=== PATIENT | female | born 1945 | race Caucasian/White ===

== ENCOUNTER 2020-03-04 13:22 | Emergency (ER) | payer MEDICARE, OTHER, SELFPAY ==
--- NOTE | 2020-03-04 13:24 | ED.FEMALEGU ---
HPI - Female Genitourinary General Chief complaint: Urogenital-Female Stated complaint: pos uti Time Seen by Provider: 03/04/20 14:00 Source: patient and RN notes reviewed Mode of arrival: ambulatory Limitations: no limitations History of Present Illness HPI Narrative: 74-year-old female presents concern for 1 day history of dysuria, urgency, frequency. Reports chills last night. She denies fever, malaise, hematuria, nausea, vomiting, flank pain. Reports chronic low back pain. MD elicited complaint: UTI Related Data Home Medications Medication Instructions Recorded Confirmed atorvastatin 40 mg tablet 40 mg PO DAILY 10/05/19 03/04/20 carvedilol 6.25 mg tablet 6.25 mg PO Q12H 10/05/19 03/04/20 celecoxib 200 mg capsule 200 mg PO DAILY 10/05/19 03/04/20 cholecalciferol (vit D3) 1,000 1 tablet PO DAILY 10/05/19 03/04/20 unit-vitamin K2 (MK4) 100 mcg tablet digestive enzymes 1 tablet PO DAILY 10/05/19 03/04/20 docusate sodium 250 mg capsule 250 mg PO DAILY 10/05/19 03/04/20 esomeprazole magnesium 20 mg 20 mg PO BID cap 10/05/19 03/04/20 capsule,delayed release famotidine 20 mg tablet 20 mg PO DAILY 10/05/19 03/04/20 ferrous sulfate 325 mg (65 mg 325 mg PO DAILY 10/05/19 03/04/20 iron) tablet fluticasone propionate 50 1 spray NASAL DAILY 10/05/19 03/04/20 mcg/actuation nasal spray,suspension gabapentin 800 mg tablet 800 mg PO DAILY 10/05/19 03/04/20 [id number] 1 cap PO BID 10/05/19 03/04/20 24,000-76,000-120,000 unit capsule,delayed rel lisinopril 10 mg tablet 10 mg PO DAILY 10/05/19 03/04/20 magnesium oxide 400 mg (241.3 mg 400 mg PO DAILY 10/05/19 03/04/20 magnesium) tablet meclizine 25 mg tablet 25 mg PO BID 10/05/19 03/04/20 vitamin B complex 1 tablet PO DAILY 10/05/19 03/04/20 zolpidem 10 mg tablet 5 mg PO HS 10/05/19 03/04/20 hydrocodone 10 mg-acetaminophen 1 tablet PO Q8H PRN 10/26/19 03/04/20 325 mg tablet Allergies Allergy/AdvReac Type Severity Reaction Status Date / Time VOLTAREN TOPICAL AdvReac Mild HIVES Uncoded 12/22/19 10:14 Review of Systems Review of Systems: Narrative: CONSTITUTIONAL: Denies malaise, chills, sweats, or fever. CARDIOVASCULAR: Denies chest pain, palpitations, or edema. RESPIRATORY: Denies cough or dyspnea. GASTROINTESTINAL: Denies abdominal pain, nausea, vomiting, diarrhea GENITOURINARY: Reports urgency, frequency, dysuria. Denies flank pain or hematuria. MUSCULOSKELETAL: Reports low back pain. Denies myalgia. All systems reviewed & are unremarkable except as noted in HPI and below PMFSH Past Medical History Medical History (Updated 03/04/20 @ 14:21 by Hollie Ruiz NP) Anemia Arthritis Cellulitis of left foot Chronic GERD Diabetes Dizziness HTN (hypertension) Left foot pain Metatarsal fracture Seasonal allergies Sleep disorder Vertigo Vision abnormalities Surgical History Surgical History History of appendectomy History of bilateral knee replacement History of right hip replacement History of spinal fusion Family History Family History Unknown Diabetes mellitus Hypertension Cardiovascular disease Arthritis Social History Social History Alcohol intake: never Additional living arrangements comments: 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 There is no relevant family history pertinent to the presenting complaint Exam Narrative: Exam Narrative: GENERAL: Well-appearing, well-nourished, and in no acute distress. HEAD: Normocephalic. EYES: PERRLA, conjunctivae clear. NECK: Supple. No lymphadenopathy CHEST: Clear to auscultation. No respiratory d
[2020-03-04 13:38] VITALS: BP 146/74; PULSE 72; RESP 18; TEMP 36.4; O2SAT 97
== END 2020-03-04 14:23 | disposition home or self-care (01) ==
PROVIDERS: Emergency Provider Nurse Practitioner
DX: N39.0 Urinary tract infection, site not specified (principal); M19.90 Unspecified osteoarthritis, unspecified site; K21.9 Gastro-esophageal reflux disease without esophagitis; E11.9 Type 2 diabetes mellitus without complications; I10 Essential (primary) hypertension; Z96.653 Presence of artificial knee joint, bilateral; Z96.641 Presence of right artificial hip joint
CPT/HCPCS: 81003; 87077; 87086; 87088; 87186; 99213; G0463

== ENCOUNTER 2020-09-30 16:13 | Emergency (ER) | payer MEDICARE, OTHER, SELFPAY ==
--- NOTE | 2020-09-30 16:20 | ED.GENADULT ---
HPI - General Adult General Chief complaint: Urogenital-Female Stated complaint: UTI Source: patient Mode of arrival: ambulatory Limitations: no limitations History of Present Illness HPI narrative: 74 y/o female. PMHx GERD, Iron Def Anemia, HTN, Neuropathy, OA. Presents to [facility] today with acute complaints of urinary frequency, bladder pressure, and dysuria for the past 48 hours. No fever, chills. No abdominal pain, flank pain, pelvic pain, vaginal discharge, or hematuria. Pt has not yet sought out medical evaluation until now, today. No additional acute complaints of illness have been relayed upon exam. Related Data Home Medications Medication Instructions Recorded Confirmed atorvastatin 40 mg tablet 40 mg PO DAILY 10/05/19 03/04/20 carvedilol 6.25 mg tablet 6.25 mg PO Q12H 10/05/19 03/04/20 celecoxib 200 mg capsule 200 mg PO DAILY 10/05/19 03/04/20 cholecalciferol (vit D3) 1,000 1 tablet PO DAILY 10/05/19 03/04/20 unit-vitamin K2 (MK4) 100 mcg tablet digestive enzymes 1 tablet PO DAILY 10/05/19 03/04/20 docusate sodium 250 mg capsule 250 mg PO DAILY 10/05/19 03/04/20 esomeprazole magnesium 20 mg 20 mg PO BID cap 10/05/19 03/04/20 capsule,delayed release famotidine 20 mg tablet 20 mg PO DAILY 10/05/19 03/04/20 ferrous sulfate 325 mg (65 mg 325 mg PO DAILY 10/05/19 03/04/20 iron) tablet fluticasone propionate 50 1 spray NASAL DAILY 10/05/19 03/04/20 mcg/actuation nasal spray,suspension gabapentin 800 mg tablet 800 mg PO DAILY 10/05/19 03/04/20 tzjhxw-dhpcbvbo-pjavrsl 1 cap PO BID 10/05/19 03/04/20 24,000-76,000-120,000 unit capsule,delayed rel lisinopril 10 mg tablet 10 mg PO DAILY 10/05/19 03/04/20 magnesium oxide 400 mg (241.3 mg 400 mg PO DAILY 10/05/19 03/04/20 magnesium) tablet meclizine 25 mg tablet 25 mg PO BID 10/05/19 03/04/20 vitamin B complex 1 tablet PO DAILY 10/05/19 03/04/20 zolpidem 10 mg tablet 5 mg PO HS 10/05/19 03/04/20 oxycodone-acetaminophen 09/30/20 Allergies Allergy/AdvReac Type Severity Reaction Status Date / Time VOLTAREN TOPICAL AdvReac Mild HIVES Uncoded 09/30/20 16:25 Review of Systems Review of Systems: CONSTITUTIONAL: Denies fever, chills, sweats. EYES: Denies visual changes, redness, discharge. ENT: Denies rhinorrhea, congestion, sore throat, otalgia. CARDIOVASCULAR: Denies chest pain, palpitations, edema. RESPIRATORY: Denies dyspnea, wheezing, cough GASTROINTESTINAL: Denies abdominal pain, nausea, vomiting, diarrhea. GENITOURINARY: Positive dysuria. No hematuria, abnormal discharge SKIN: Denies rash or itching. MUSCULOSKELETAL: Denies acute back pain, joint pain, or myalgia. NEUROLOGIC: Denies numbness, or focal weakness. PSYCHIATRIC: Denies anxiety or depression. All systems reviewed & are unremarkable except as noted in HPI and below PMFSH Past Medical History Medical History (Updated 09/30/20 @ 16:29 by TIMMY Faustin) Anemia Arthritis Cellulitis of left foot Chronic GERD Diabetes Dizziness HTN (hypertension) Left foot pain Metatarsal fracture Seasonal allergies Sleep disorder Vertigo Vision abnormalities Surgical History Surgical History History of appendectomy History of bilateral knee replacement History of right hip replacement History of spinal fusion Family History Family History Unknown Diabetes mellitus Hypertension Cardiovascular disease Arthritis Social History Social History Smoking status: Never smoker Alcohol intake: never Additional living arrangements comments: 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
[2020-09-30 16:24] VITALS: BP 139/68; PULSE 64; RESP 20; TEMP 36.8; O2SAT 96
== END 2020-09-30 16:54 | disposition home or self-care (01) ==
PROVIDERS: Emergency Provider Nurse Practitioner Adult Health; PCP Family Medicine
DX: N39.0 Urinary tract infection, site not specified (principal); M19.90 Unspecified osteoarthritis, unspecified site; K21.9 Gastro-esophageal reflux disease without esophagitis; I10 Essential (primary) hypertension; G47.9 Sleep disorder, unspecified; Z96.653 Presence of artificial knee joint, bilateral; Z96.641 Presence of right artificial hip joint; D50.9 Iron deficiency anemia, unspecified
CPT/HCPCS: 81003; 87077; 87086; 87186; 99213; G0463

== ENCOUNTER 2020-10-26 13:10 | Emergency (ER) | payer MEDICARE, OTHER, SELFPAY ==
[2020-10-26] VITALS (15 sets, daily range): BP systolic 129–151; BP diastolic 63–94; PULSE 61–99; RESP 14–28; TEMP 36.8–36.9; O2SAT 91–95
--- NOTE | 2020-10-26 14:36 | ED.BACK ---
HPI - Back Pain/Injury General Chief Complaint: Back Pain/Injury Stated Complaint: left back pain Time Seen by Provider: 10/26/20 14:35 History of Present Illness HPI Narrative: 74 yo female w/ h/o pancreatitis, frequent UTi presents to the ED c/o back pain. She reports pain in the left upper back near the scapula since this morning. Pain was initially severe, now mild. She denies any associated symptoms. She says that this is similar to previous pancreatitis. Related Data Home Medications Medication Instructions Recorded Confirmed atorvastatin 40 mg tablet 40 mg PO DAILY 10/05/19 10/05/20 carvedilol 6.25 mg tablet 6.25 mg PO Q12H 10/05/19 10/05/20 celecoxib 200 mg capsule 200 mg PO DAILY 10/05/19 10/05/20 cholecalciferol (vit D3) 1,000 1 tablet PO DAILY 10/05/19 10/05/20 unit-vitamin K2 (MK4) 100 mcg tablet ferrous sulfate 325 mg (65 mg 325 mg PO DAILY 10/05/19 10/05/20 iron) tablet fluticasone propionate 50 1 spray NASAL BID 10/05/19 10/05/20 mcg/actuation nasal spray,suspension gabapentin 800 mg tablet 800 mg PO QID 10/05/19 10/05/20 lisinopril 10 mg tablet 10 mg PO DAILY 10/05/19 10/05/20 meclizine 25 mg tablet 25 mg PO QID PRN 10/05/19 10/05/20 vitamin B complex 1 tablet PO DAILY 10/05/19 10/05/20 chlorzoxazone 500 mg PO TID 09/30/20 10/05/20 furosemide 20 mg PO DAILY PRN 09/30/20 10/05/20 oxybutynin chloride 10 mg PO DAILY 09/30/20 10/05/20 Allergies Allergy/AdvReac Type Severity Reaction Status Date / Time VOLTAREN TOPICAL AdvReac Mild HIVES Uncoded 10/26/20 13:26 Review of Systems Review of Systems: All systems reviewed & are unremarkable except as noted in HPI and below Constitutional: Constitutional: Denies fever(s) Cardiovascular: Cardiovascular: Denies chest pain Respiratory: Respiratory: Denies dyspnea Gastrointestinal: Gastrointestinal: Denies abdominal pain, Denies nausea and Denies vomiting Genitourinary: Genitourinary: Denies hematuria and Denies dysuria Neurologic: Denies numbness and Denies weakness COUNTS INCLUDE 234 BEDS AT THE [facility] Past Medical History Medical History Anemia Arthritis Cellulitis of left foot Chronic GERD Dizziness HTN (hypertension) Left foot pain Metatarsal fracture Seasonal allergies Sleep disorder Vertigo Vision abnormalities Surgical History Surgical History History of appendectomy History of bilateral knee replacement History of right hip replacement History of spinal fusion Family History Family History Unknown Diabetes mellitus Hypertension Cardiovascular disease Arthritis Social History Social History Alcohol intake: never Additional living arrangements comments: 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 Exam Const: General: no acute distress and alert Orientation/consciousness: patient oriented x3 HENMT: Head: normal to inspection Neck: Neck: normal visual inspection Chest: Chest palpation & inspection: no tenderness Resp: Effort & Inspection: normal respiratory effort Auscultation: clear to auscultation bilaterally, no rales, no rhonchi and no wheezes Cardio: Jugular venous distension: no JVD Rate: regular rate Rhythm: regular rhythm Heart sounds: no murmurs GI: Inspection: non-distended GI Palp: Yes Soft to palpation and No Tenderness to palpation present (GI) Back/Spine/Pelvis: Other: nontender Skin: General skin exam: normal color Neuro: General: patient oriented x3 and moves all extremities Speech: normal speech Extrem: General: no edema Psych: Appearance: well kempt Affect: normal affect Course Vital Signs Vital signs: Vital Signs Temperature 36.8 C 10/26/20 13:16 Pulse Rate 69
[2020-10-26 15:54] LABS: Basophils Percent Auto 0.3 % (0.2-1.2); Eosinophils Percent Auto 0.6 % (0-4.4); Hematocrit 44.8 % (37.0-47.0); Hemoglobin 15.3 g/dL (12.0-15.0); Immature Granulocyte Absolute 0.01 K/mm3 (0.00-0.031); Immature Granulocyte Percent A 0.2 % (0-0.5); Lymphocytes Absolute Auto 2.05 K/mm3 (0.9-3.2); Lymphocytes Percent Auto 31.3 % (18.3-44.2); Mean Corpuscular HGB Conc 34.2 g/dl (32-36); Mean Corpuscular Hemoglobin 30.2 pg (26-34); Mean Corpuscular Volume 88.4 fl (80-100); Mean Platelet Volume 8.7 fl (7.4-10.4); Monocytes Absolute Auto 0.5 K/mm3 (0.1-0.6); Neutrophils Percent Auto 60.6 % (45.5-73.1); Platelet Count Result 214 k/mm3 (150-375); Red Blood Count 5.07 M/mm3 (4.2-5.4); Red Cell Distribution Width 12.7 % (11.5-14.5); White Blood Count 6.5 K/mm3 (4.5-10.0)
[2020-10-26 16:26] LABS: Alanine Aminotransferase 21 U/L (4-35); Albumin Level 4.6 g/dL (3.5-5.1); Alkaline Phosphatase 75 U/L (38-126); Anion Gap 9 mmol/L (8-16); Aspartate Amino Transferase 31 U/L (14-36); Bilirubin,Total 0.9 mg/dL (0.2-1.3); Blood Urea Nitrogen 11 mg/dL (7-17); Calcium 10.2 mg/dL (8.4-10.2); Carbon Dioxide 25 mmol/L (22-30); Chloride 92 mmol/L (98-107); Estimated CRCL calculation 79 ml/min; Estimated Glomerular Filt Rate > 60; Glucose 113 mg/dL (65-110); Lipase 65 U/L (23-300); Potassium 4.5 mmol/L (3.4-5.0); Sodium 126 mmol/L (137-145)
[2020-10-26 16:41] LABS: Add Urine Microscopic? YES; Appearance Urine Clear (Clear); Bacteria Urine Trace /hpf; Bilirubin Urine Negative (Negative); Blood Urine Negative (Negative); Color Urine Yellow (Yellow); Glucose Urine UA Negative (Negative); Ketones Urine Negative (Negative); Leukocyte Esterase Ur 3+ LEU/UL (Negative); Nitrate Urine Positive (Negative); Protein Urine Negative (Negative); RBC Urine 0-2 /hpf (0-2); Urobilinogen Urine Negative mg/dL (<2.0); WBC Urine 31-50 /hpf
[2020-10-26 17:17] LABS: Specific Grav Ur 1.004 (1.001-1.035)
[2020-10-26] MEDS: NITROFURANTOIN MONOHYD MACROCR 100 MG CAP PO (17:30)
== END 2020-10-26 17:54 | disposition home or self-care (01) ==
PROVIDERS: Emergency Provider Emergency Medicine; PCP Family Medicine
DX: N39.0 Urinary tract infection, site not specified (principal); I10 Essential (primary) hypertension; G47.9 Sleep disorder, unspecified; K21.9 Gastro-esophageal reflux disease without esophagitis; Z86.2 Personal history of diseases of the blood and blood-forming organs and certain disorders involving the immune mechanism; Z96.653 Presence of artificial knee joint, bilateral
CPT/HCPCS: 36415; 80053; 81001; 83690; 85025; 87077; 87086; 87088; 87186; 99283; A9270

== ENCOUNTER → 2020-12-15 17:42 | Outpatient (CLI) | payer MEDICARE, OTHER, SELFPAY ==
--- NOTE | ~2020-12-15 | MM_ITS ---
EXAMINATION: MM screening sayda BI w ingrid HISTORY: Screening mammogram TECHNIQUE: Craniocaudal and mediolateral oblique 3-D tomosynthesis images were obtained and synthetic 2-D images were generated. CAD analysis was submitted and interpreted. COMPARISON: No prior mammogram is available for comparison at this institution. BREAST PARENCHYMAL COMPOSITION: The breasts are almost entirely fatty. FINDINGS: Scattered bilateral benign calcifications. There is no evidence of suspicious mass, calcifi cation, or architectural distortion to suggest malignancy in either breast. IMPRESSION: 1. No mammographic evidence of malignancy. 2. Recommend routine screening mammography in one year. BI-RADS Category 2: Benign finding(s). Reviewed, dictated and finalized at location A.
--- NOTE | ~2020-12-15 | DEXA_ITS ---
Bone Density Report Name: Kay José Age: 75 Sex: Female Ethnicity: White Date of : 1945 Indication: postmenopausal; screening for osteoporosis; height loss; hysterectomy; Referring Provider: IQRA SHARPE Study: Bone densitometry was performed. Exam Date: December 15, 2020 Accession number: [id number] Bone Density: Region BMD T-score Z-score Classification AP Spine (L1, L2) 1.004 0.2 2.4 Normal Femoral Neck (Left) 0.742 -1.0 1.0 Normal Total Hip (Left) 0.861 -0.7 1.0 Normal World Health Organization criteria for BMD impression classify patients as: Normal (T-score at or above -1.0), Osteopenia (T-score between -1.0 and -2.5), or Osteoporosis (T-score at or below -2.5). 10-year Fracture Risk: FRAX not reported because: All T-scores for Spine Total, Hip Total, Femoral Neck at or above -1.0 Clinical Information Provided by Patient: Has used the following medications: Vitamin D Has the following medical conditions: Hysterectomy Patient maximum height was 68.5 Menopause Age: 42 No regular weight bearing exercise Does not regularly consume dairy products Onset of menses at age 16 Number of children 2 Impression: The patient has normal bone mass. Discussion: BONE DENSITY IS ABOVE THE MINIMUM DESIRABLE LEVEL AT ALL SKELETAL SITES TESTED. This patient?s bone mineral density is above the minimum desirable level (T-score -1.0 or better) at all sites measured. The patient should follow a healthful lifestyle (good nutrition with adequate calcium and vitamin D, and appropriate weight-bearing exercise). Follow-Up: Consider repeating this study in 5 years or sooner if there is some new clinical indication. Reported by: JE on 12/15/2020 6:42:00 PM. Reviewed, dictated and finalized at location ADilma [facility]
== END ==
PROVIDERS: PCP Family Medicine; Visit Provider Family Medicine
DX: Z12.31 Encounter for screening mammogram for malignant neoplasm of breast (principal); Z78.0 Asymptomatic menopausal state; Z79.899 Other long term (current) drug therapy
CPT/HCPCS: 77063; 77067; 77080

== ENCOUNTER 2021-01-31 16:54 | Emergency (ER) | payer MEDICARE, OTHER, SELFPAY ==
--- NOTE | ~2021-01-31 | XR_ITS ---
EXAMINATION: XR hip LT 2V w AP pelvis DATE: 01/31/2021 18:19 INDICATION: Left hip and pelvic pain. Fall. TECHNIQUE: An anteroposterior view of the pelvis and 2 views of left hip were obtained. COMPARISON: None. FINDINGS: There is a total right hip arthroplasty in near-anatomic alignment. There are nondisplaced fractures of left superior and inferior pubic rami. There are changes of anterior and posterior fusio n procedures in lumbar spine. There is moderate left hip osteoarthritis. Osteitis pubis is noted. IMPRESSION: 1. Nondisplaced fractures of left superior and inferior pubic rami. 2. Moderate left hip osteoarthritis. 3. Total right hip arthroplasty in near-anatomic alignment. Reviewed, dictated and finalized at location A. PHYSICIST
--- NOTE | 2021-01-31 17:49 | ED.FALL ---
HPI - Fall General Chief Complaint: Fall Stated Complaint: Fall Time Seen by Provider: 01/31/21 17:49 Source: patient and RN notes reviewed History of Present Illness HPI Narrative: Patient is an 75-year-old female who presents the urgent care with her daughter with complaints of left hip and pelvic pain. Patient states that she fell on landing on her bathroom floor. Patient states that she typically uses a cane to ambulate but has been using a wheelchair lately due to the pain. Patient denies any loss of consciousness or hitting her head during the fall. States that she has been taking her normal dose of oxycodone for her pain as well as CBD. Patient states that the pain is just gradually increased. Patient does have a hip replacement to the right hip. No other acute complaints. No acute distress noted. Patient and daughter aware of the plan of care. Some parts of this dictation were generated by voice recognition software and may contain typographical and/or grammatical inaccuracies. Related Data Home Medications Medication Instructions Recorded Confirmed atorvastatin 40 mg tablet 40 mg PO DAILY 10/05/19 01/31/21 cholecalciferol (vit D3) 1,000 1 tablet PO DAILY 10/05/19 01/31/21 unit-vitamin K2 (MK4) 100 mcg tablet ferrous sulfate 325 mg (65 mg 325 mg PO DAILY 10/05/19 01/31/21 iron) tablet gabapentin 800 mg tablet 800 mg PO QID 10/05/19 01/31/21 vitamin B complex 1 tablet PO .QOD tablet 12/21/20 01/31/21 Creon 01/31/21 01/31/21 docusate sodium 100 mg PO DAILY 01/31/21 01/31/21 famotidine [Pepcid] 20 mg PO DAILY 01/31/21 01/31/21 Allergies Allergy/AdvReac Type Severity Reaction Status Date / Time erythromycin base AdvReac Nausea Verified 01/31/21 18:07 VOLTAREN TOPICAL AdvReac Mild HIVES Uncoded 10/26/20 13:26 Review of Systems Review of Systems: CONSTITUTIONAL: Denies fever, chills, or sweats. EYES: Denies visual changes, redness, or discharge. ENT: Denies rhinorrhea, congestion, sore throat, or otalgia. CARDIOVASCULAR: Denies chest pain, palpitations, or edema. RESPIRATORY: Denies cough or dyspnea. GASTROINTESTINAL: Denies abdominal pain, nausea, vomiting, or diarrhea. GENITOURINARY: Denies dysuria or hematuria. SKIN: Denies rash or itching. MUSCULOSKELETAL: Reports of left hip pain radiating to the pelvis region NEUROLOGIC: Denies headache, numbness, or weakness. All other systems reviewed are negative, except as documented in HPI. [facility] Past Medical History Medical History Anemia Arthritis Cellulitis of left foot Chronic GERD Dizziness HTN (hypertension) Left foot pain Metatarsal fracture Seasonal allergies Sleep disorder Vertigo Vision abnormalities Surgical History Surgical History History of appendectomy History of bilateral knee replacement History of right hip replacement History of spinal fusion Family History Family History Unknown Diabetes mellitus Hypertension Cardiovascular disease Arthritis Social History Social History (Updated 12/21/20 @ 15:11 by Rhonda Lock [facility]) Alcohol intake: never Additional living arrangements comments: 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 There is no relevant family history pertinent to the patient complaint. Exam Narrative: GENERAL: This is a well-nourished, well-developed patient, in no apparent distress. HEAD: normocephalic, atraumatic. EYES: PERRL. Sclera clear/white. Vision is grossly intact. EARS: External ears normal NOSE: External nose normal with no obvious nasal discharge, nares without
[2021-01-31 18:11] VITALS: BP 118/60; PULSE 94; RESP 20; TEMP 36.8; O2SAT 96
== END 2021-01-31 19:16 | disposition home or self-care (01) ==
PROVIDERS: Emergency Provider Nurse Practitioner Family; PCP Family Medicine
DX: S32.9XXA Fracture of unspecified parts of lumbosacral spine and pelvis, initial encounter for closed fracture (principal); I10 Essential (primary) hypertension; W18.30XA Fall on same level, unspecified, initial encounter; Y92.002 Bathroom of unspecified non-institutional (private) residence as the place of occurrence of the external cause
CPT/HCPCS: 73502; 99213; G0463

== ENCOUNTER 2022-09-06 16:39 | Emergency (ER) | payer MEDICARE, OTHER, SELFPAY ==
[2022-09-06 16:50] VITALS: BP 152/78; PULSE 76; RESP 18; TEMP 36.7; O2SAT 97
[2022-09-06 16:56] VITALS: BP 152/78
--- NOTE | 2022-09-06 17:21 | ED.EYEPROB ---
HPI - Eye Problem General Chief complaint: Eye Problems Stated complaint: swelling under eyes Time Seen by Provider: 09/06/22 17:03 Source: patient, family (surgical aides teacher) and RN notes reviewed Mode of arrival: ambulatory Limitations: no limitations History of Present Illness HPI Narrative: Patient presents today complaining of swelling below both of her eyes. She denies any additional symptoms to include congestion, cough, sore throat, itchy or watery eyes, drainage from her eyes, vision changes, fever. Patient uses Flonase and Benadryl for her symptoms without much relief. She was also seen by her PCP for similar symptoms in the past and was given a prescription for an unknown (possibly mometasone) under eye cream. She did not attempt to use this for her current symptoms. Related Data Home Medications Medication Instructions Recorded Confirmed cholecalciferol (vit D3) 1,000 1 tablet PO DAILY 10/05/19 09/06/22 unit-vitamin K2 (MK4) 100 mcg tablet ferrous sulfate 325 mg (65 mg 325 mg PO DAILY 10/05/19 09/06/22 iron) tablet vitamin B complex (B 1 tablet PO .QOD 12/21/20 09/06/22 Complex-Vitamin B12 tablet) docusate sodium 100 mg capsule 100 mg PO DAILY 01/31/21 09/06/22 famotidine 20 mg tablet (Pepcid) 20 mg PO DAILY 01/31/21 09/06/22 esomeprazole magnesium 20 mg 20 mg PO DAILY 02/16/21 09/06/22 tablet,delayed release (Nexium 24HR) magnesium 200 mg tablet 400 mg PO DAILY 02/16/21 09/06/22 Allergies Allergy/AdvReac Type Severity Reaction Status Date / Time erythromycin base AdvReac Nausea Verified 09/06/22 16:52 VOLTAREN TOPICAL AdvReac Mild HIVES Uncoded 09/06/22 16:52 Review of Systems Review of Systems: CONSTITUTIONAL: Denies body aches, fever, chills, or sweats. EYES: Denies visual changes, redness, or discharge. Under eye swelling ENT: Denies rhinorrhea, congestion, sore throat, or otalgia. CARDIOVASCULAR: Denies chest pain, palpitations, or edema. RESPIRATORY: Denies cough or dyspnea. GASTROINTESTINAL: Denies abdominal pain, nausea, vomiting, or diarrhea. GENITOURINARY: Denies dysuria or hematuria. SKIN: Denies rash, itching, or wounds. MUSCULOSKELETAL: Denies back pain, joint pain, or myalgia. NEUROLOGIC: Denies headache, numbness, tingling, or weakness. PSYCH: Denies depression or anxiety. [facility] Past Medical History Medical History Anemia Arthritis Cellulitis of left foot Chronic GERD Dizziness History of bleeding ulcers History of stress test HTN (hypertension) Hyperlipemia Left foot pain Metatarsal fracture Pancreatitis Seasonal allergies Sleep disorder Vertigo Vision abnormalities Surgical History Surgical History History of appendectomy History of bilateral knee replacement History of cholecystectomy History of right hip replacement History of spinal fusion Family History Family History Unknown Diabetes mellitus Hypertension Cardiovascular disease Arthritis Social History Social History Smoking status: Never smoker Alcohol intake: never Lack of Transportation: No Lack of Food: Never True Current Housing: I Have Housing Concerned About Future Housing: No Difficulty Paying Gas/Electric Bills: No Difficulty Paying for Meds: No Currently Unemployed: No Education: Bachelor's Degree Difficulty w/ Childcare or Family Care: No Living arrangements: with family Additional living arrangements comments: Occupation/Education: retired 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
== END 2022-09-06 17:30 | disposition home or self-care (01) ==
PROVIDERS: Emergency Provider Nurse Practitioner; PCP Family Medicine
DX: H02.845 Edema of left lower eyelid (principal); H02.842 Edema of right lower eyelid; M19.90 Unspecified osteoarthritis, unspecified site; K21.9 Gastro-esophageal reflux disease without esophagitis; I10 Essential (primary) hypertension; E78.5 Hyperlipidemia, unspecified; Z96.653 Presence of artificial knee joint, bilateral; Z96.641 Presence of right artificial hip joint
CPT/HCPCS: 99211; G0463

== ENCOUNTER 2023-05-15 14:30 | Outpatient (CLI) | payer MEDICARE, OTHER, SELFPAY ==
--- NOTE | ~2023-05-15 | US_ITS ---
EXAMINATION:US venous doppler LE LT INDICATION:Left leg swelling TECHNIQUE: Multiple grayscale, color flow and Doppler images of the left lower extremity deep venous systems were obtained and reviewed. COMPARISON:No prior studies for comparison. FINDINGS: The common femoral, superficial femoral and popliteal veins demonstrate normal respiratory variation, augmentation and compressibility. Color flow is also seen within the posterior tibial, pe roneal, greater saphenous and profunda veins. IMPRESSION: 1: No lower extremity deep venous thrombosis. Reviewed, dictated and finalized at location A.
== END 2023-05-15 14:31 | disposition home or self-care (01) ==
PROVIDERS: PCP Family Medicine; Visit Provider Family Medicine
DX: M79.89 Other specified soft tissue disorders (principal)
CPT/HCPCS: 93971

== ENCOUNTER 2024-09-01 15:27 | Outpatient (CLI) | payer MEDICARE, OTHER, SELFPAY ==
--- NOTE | ~2024-09-01 | MM_ITS ---
EXAMINATION: MM screening sayda BI w ingrid HISTORY: Screening mammogram TECHNIQUE: Craniocaudal and mediolateral oblique 3-D tomosynthesis images were obtained and synthetic 2-D images were generated. CAD analysis was submitted and interpreted. COMPARISON: 12/15/2020 BREAST PARENCHYMAL COMPOSITION:Not Dense. The breasts are almost entirely fatty FINDINGS: No suspicious mass, calcification, or architectural distortion are identified in either walter ast to suggest malignancy. There has been no suspicious interval change. IMPRESSION: No mammographic evidence of malignancy. Recommend routine screening mammography in one year. BI-RADS Category 1: Negative Reviewed, dictated and finalized at location .
== END 2024-09-01 15:28 | disposition home or self-care (01) ==
LOC: MICIMG 15:28
PROVIDERS: PCP Family Medicine; Visit Provider Family Medicine
DX: Z12.31 Encounter for screening mammogram for malignant neoplasm of breast (principal)
CPT/HCPCS: 77063; 77067

== ENCOUNTER 2024-11-10 14:56 | Outpatient (CLI) | payer MEDICARE, OTHER, SELFPAY ==
--- NOTE | ~2024-11-10 | DEXA_ITS ---
Bone Density Report Name: AYLA CORTEZ Age: 78 Sex: Female Ethnicity: White Date of : 1945 Indication: postmenopausal; screening for osteoporosis; height loss; hysterectomy; Referring Provider: IQRA SHARPE Study: Bone densitometry was performed. Exam Date: November 10, 2024 Accession number: [id number] Bone Density: Region BMD T-score Z-score Classification AP Spine(L1, L2) 0.895 -0.8 1.6 Normal Femoral Neck (Left) 0.617 -2.1 0.1 Osteopenia Total Hip (Left) 0.825 -1.0 0.9 Normal World Health Organization criteria for BMD impression classify patients as: Normal (T-score at or above -1.0), Osteopenia (T-score between -1.0 and -2.5), or Osteoporosis (T-score at or below -2.5). 10-year Fracture Risk(1): Major Osteoporotic Fracture 13% Hip Fracture 3.2% Reported Risk Factors: [place] (), Neck BMD=0.617, BMI=40.6 (1) FRAX(R) Version 3.08. Fracture probability calculated for an untreated patient. Fracture probability may be lower if the patient has received treatment. Previous Exams: Region Exam Age BMD T-score BMD Change BMD Change Date g/cm2 vs Baseline vs Previous AP Spine (L1-L2) 11/10/2024 78 0.895 -0.8 -0.109 (-10.9% -0.109 (-10.9% 12/15/2020 75 1.004 0.2 Total Hip(Left) 11/10/2024 78 0.825 -1.0 -0.036 (-4.2%) -0.036 (-4.2%) 12/15/2020 75 0.861 -0.7 *Denotes significance at 95% confidence level, LSC for AP Spine = 0.022 g/cm2, LSC for Total Hip = 0.027 g/cm2 Clinical Information Provided by Patient: Has used the following medications: Vitamin D Has the following medical conditions: Hysterectomy Patient maximum height was 68.5 Menopause Age: 42 No regular weight bearing exercise Does not regularly consume dairy products Onset of menses at age 16 Number of children 2 Impression: The patient has low bone mass, based on the Left Femoral Neck T-score. The patient has an estimated ten-year risk of hip fracture of 3.2% and an estimated ten-year risk of major fracture of 13%, based on the WHO FRAX algorithm. The BMD for the AP Spine (L1-L2) decreased, changing by -10.9% since the last DXA exam. The BMD for the Total Hip(Left) decreased, changing by -4.2% since the last DXA exam. Discussion: BONE DENSITY IS LOW AT ONE OR MORE SKELETAL SITES. THE PATIENT'S BMD AND CLINICAL RISK FACTORS CONTRIBUTE TO THIS PATIENT'S INCREASED RISK OF FRACTURE. This patient's lowest T-score is low at one or more skeletal sites. It meets the World Health Organization's (WHO) criteria for ?low bone mass? (T-score between -1.0 and -2.5). The patient's 10-year risk of hip fracture as calculated by FRAX exceeds the threshold where pharmacological therapy is recommended by the National Osteoporosis Foundation (NOF). However, all treatment decisions require clinical judgment and consideration of individual patient factors, including patient preferences, comorbidities, previous drug use, risk factors not captured in the FRAX model (e.g., frailty, falls, vitamin D deficiency, increased bone turnover, interval significant decline in bone density) and possible under or overestimation of fracture risk by FRAX. The patient should follow a healthful lifestyle (good nutrition with adequate calcium and vitamin D, and appropriate weight-bearing exercise). Follow-Up: Consider a repeat BMD and Vertebral Fracture Assessment (VFA) exam in 2 years or sooner if medically necessary, to reassess this patient's status. Reported by: ANGELIKA on 11/10/2024 3:35:00 PM. Reviewed, dictated and finalized at location A.
--- OUTSIDE RECORDS SUMMARY | 2024-11-10 15:25 | XMS_ITS | Patient Health Record ---
Author Organization [facility] Address [address] [place] [id number] Care Team Providers Care Emergency Management Director Name Role Phone Travis Phillips MD Primary Care Provider Edison Yeung Unavailable [phone] Serg Wahl MD Unavailable Unavailable ALLERGIES Allergen (clinical drug ingredient) Drug/Non Drug Allergy documented on EMR Reaction Allergy Type Onset Date Status Voltaren rash/hives Drug Allergy Active adheisive tape (uncoded) Unknown Allergy Active REASON FOR REFERRAL No Information MEDICATIONS Medication SIG (Take, Route, Frequency, Duration) Notes Start Date End Date Status Coreg 6.25 MG Orally BID Activ e Magnesium 300 MG 1 capsule with a kim l Orally Once a day Active Parafon Forte DSC 500 MG 1 tablet Orally Three times a day Active Gabapentin 400 MG 2 capsule Orally Thr ee times a day Active Poly Iron PN 150 1 tablet orally once a day Active Vytorin 10-20 MG 1 tablet Orally Once a day Active Zantac 300 MG 1 tablet at bedtime Orally Once a day Active Zolpidem Tartrate 10 MG 1 tablet at bedt pattie as needed Orally Once a day Active Vicodin HP 10-300 MG 1 tablet as needed Orally four times a day Active Lisinopril 10 MG 1 tablet Orally Once a day Active Vitamin D3 1000 UNIT 1 capsule Orally On ce a day Active NexIUM 20 MG 2 capsule Orally Onc e a day Active Vitamin B12 1000 MCG 1 tablet Orally Once a day Active Creon 10 2 capsules orally TID Active Colace 100 MG 2 capsule as needed Orally twice a day Active CeleBREX 200 MG 1 capsule with food Orally Once a day Active Flonase Allergy Relief 50 MCG/ACT 1 spray in each nostril Nasally Once a day Active IMMUNIZATIONS Vaccine Route Administration Date Status Comme nts Influenza Unknown 01/20/2017 Administered Influenza Unknown 05/05/2017 Administered PROBLEMS Problem Type ICD Code Onset Dates Problem Status W/U Status Risk SNOMED Code Notes Problem Type 2 diabetes mellitus without complications (E11.9) Active confirmed Type II diabetes mellitus without complication (843240030) Problem Essential (primary) hypertension (I10) Active confirmed Essential hypertension (07759484) PLAN OF TREATMENT Pending Test Test Name Order Date Osmolality, Serum 01/20/2017 RENAL PANEL 01/20/2017 MAGNESIUM 01/20/2017 Potassium, Urine Random 01/20/2017 Sodium, Urine Random 01/20/2017 Osmolality, Urine 01/20/2017 Future Test Test Name Order Date RENAL PANEL 04/22/2017 Insurance Providers Payer Name Payer Address Payer Phone Subscriber Number Group Number Insured Name Patient Relationship to Insured Coverage Start Date Coverage End Date [place] [address] [place] [address] [id number] Kay José Self - patient is the insured [employer] [address] [place] [address] [id number] Kay José Self - patient is the insured MEDICAL (GENERAL) HISTORY Medical History History ICD Code Allergic Rhinitis Diabetes Mellitus Type 2 Esophageal Reflux Esential Hypertension Hyperlipidemia Hyponatremia Low Back Pain Surgical History Surgery Date(Month/Year) Cholecystectomy 1995 Hysterectomy 1989 Rt knee arthroplasty/total rt knee repla cement 2010 left knee artroplasty/total left knee re placement 2011 Right Total Hip Arthroplasty 04/2017 Hospitalization History Reason Date(Month/Year) hyponatremia-2 days in [place] 12/2016 Right Total Hip arthroplasty 04/10/2017- 04/13/2017
== END 2024-11-10 14:57 | disposition home or self-care (01) ==
LOC: ANHFOHIMG 14:57
PROVIDERS: PCP Family Medicine; Visit Provider Student in an Organized Health Care Education/Training Program
DX: Z78.0 Asymptomatic menopausal state (principal); M85.852 Other specified disorders of bone density and structure, left thigh
CPT/HCPCS: 77080